=== PATIENT | male | born 1940 | race Caucasian/White ===

== ENCOUNTER → 2019-08-24 11:17 | Outpatient (CLI) | payer MEDICARE, OTHER, SELFPAY ==
--- NOTE | 2019-08-24 | DI.MRI.S_ITS ---
PROCEDURE: MR KNEE RT WO CON INDICATIONS: Other tear of medial meniscus, current injury, rig TECHNIQUE: Noncontrast sagittal PD fast spin echo and T2 fast spin echo with fat saturation, sagittal 3-D FLASH with fat saturation; coronal T1 spin echo and PD fast spin echo with fat saturation, and axial PD fast spin echo with fat saturation through the knee. COMPARISON: None. FINDINGS: Image quality: Excellent. Menisci: Medial meniscus tear involving the posterior horn and body, with partial extrusion. Lateral meniscus intact. Cruciate ligaments: Anterior cruciate ligament appears intact. Posterior cruciate ligament appears intact. Medial structures: There is medial bowing of the medial collateral ligament, with mild internal signal changes and no complete rupture. There is adjacent soft tissue edema. The appearance could reflect reactive changes to medial compartment pathology, versus low-grade sprain of the MCL. Pes anserinus tendons appear grossly unremarkable. Semimembranosus tendon appears intact. Lateral structures: The lateral collateral ligament intact. Biceps femoris tendon appears intact. Popliteus tendon grossly unremarkable. Iliotibial band appears intact. Anterior structures: Quadriceps tendon intact. Medial and lateral patellofemoral ligaments intact. There is mild patellar tendinopathy. Prepatellar and superficial infrapatellar subcutaneous edema/fluid. Bones and cartilage: No focal marrow contusion or discrete low signal fracture line. Within the medial compartment, partial thickness loss of the peripheral femoral and tibial cartilage Within the lateral compartment, fissuring of the central tibial cartilage. Within the patellofemoral compartment, partial thickness femoral trochlea cartilage loss Joint space: No pathologic joint effusion. 4 cm Segura's cyst. No specific evidence of intra-articular loose body. IMPRESSION: Medial meniscal tear involving the posterior horn and body. Mild patellar tendinopathy. Degenerative joint disease as above. Segura cyst. Age indeterminate MCL changes as described above. Dictated by: Gilberto Oconnell M.D. on 08/24/2019 at 13:38 Approved by: Gilberto Oconnell M.D. on 08/24/2019 at 14:12
== END ==
PROVIDERS: Visit Provider Family Medicine
DX: S83.241A Other tear of medial meniscus, current injury, right knee, initial encounter (principal); M17.11 Unilateral primary osteoarthritis, right knee; M71.21 Synovial cyst of popliteal space [Baker], right knee
CPT/HCPCS: 73721